=== PATIENT | female | born 1975 | race Caucasian/White ===

== ENCOUNTER → 2017-04-25 09:05 | Outpatient (CLI) | payer BC, SELFPAY ==
[2017-04-25 12:19] LABS: Absolute Lymphocyte Count 1.42 X10^3/ul (0.83-4.51); Absolute Neutrophil Count 5.1 X10^3/uL (2.0-7.7); Basophil# 0.01 X10^3/uL; Basophil% 0.1 % (0-1); Eosinophil# 0.09 X10^3/uL; Eosinophils% 1.2 % (0-5); Hematocrit 41.1 % (37-47); Hemoglobin 13.3 g/dl (12.0-15.0); Lymphocyte # 1.42 X10^3/ul (4.0); Lymphocyte % 19.7 % (19-41); Mean Corp Hgb Conc 32.4 g/gl (32-36); Mean Corpuscular Hgb 28.7 pg (27.0-32.0); Mean Corpuscular Volume 88.6 fL (81-99); Mean Platelet Vol. 11.1 fl (6.2-12.0); Monocyte# 0.59 X10^3/uL; Monocyte% 8.2 % (0-10); Neutrophil # 5.09 X10^3/uL (2.7-7.7); Neutrophil % 70.7 % (47-70); Platelet Count 222 K/mm3 (150-450); RBC Distribution Width CV 13.5 % (11.6-14.6); RBC Distribution Width SD 43.9 fl (35.1-43.9); Red Blood Count 4.64 M/mm3 (4.2-5.4); White Blood Count 7.2 K/mm3 (4.4-11.0)
[2017-04-25 12:22] LABS: POSITIVE COUNT NO; POSITIVE DIFFERENTIAL NO; POSITIVE MORPHOLOGY NO
[2017-04-25 12:40] LABS: Vitamin B12 577 pg/mL (211-911)
[2017-04-25 12:56] LABS: ALB/GLOB Ratio 0.9 RATIO (0.9-2.4); AST(SGOT) 12 U/L (15-37); Alanine Aminotransfer ALT/SGPT 25 U/L (13-56); Albumin, Serum 3.6 g/dL (3.2-5.0); Alkaline Phosphatase 70 U/L (45-117); Anion Gap 9 (5-15); BUN 11 mg/dL (7-18); Calcium,Total 8.5 mg/dL (8.5-10.1); Chloride 107 mmol/L (98-107); Cholesterol 154 mg/dL (200); Creatinine, Serum 0.79 mg/dL (0.55-1.02); EST Glomerular Filtration Rate 86 mL/min (>60); Est Glom Filt Rate - Afr Amer 104 mL/min (>60); Globulin 3.8 g/dL (2.2-4.2); Glucose 88 mg/dL (74-106); High Density Lipoprotein 44 mg/dL; Protein, Total 7.4 g/dL (6.4-8.2); Sodium Level 140 mmol/L (136-145); T4 Total, Thyroxin 8.9 ug/dL (4.8-13.9); Thyroid Stim Hormone (TSH) 4.18 uIU/mL (0.358-3.74); Triglycerides 102 mg/dL; Very Low Density Lipoprotein 20 mg/dL (5-40)
== END ==
PROVIDERS: Family Provider Family Medicine; PCP Family Medicine; Visit Provider Family Medicine
DX: E66.3 Overweight (principal)
CPT/HCPCS: 36415; 80053; 80061; 82607; 84436; 84443; 85025

== ENCOUNTER → 2019-09-07 17:15 | Outpatient (CLI) | payer OTHER, SELFPAY | PROVIDERS: PCP Family Medicine; Referring Provider Family Medicine; Visit Provider Family Medicine | DX: Z20.828 Contact with and (suspected) exposure to other viral communicable diseases (principal) | CPT/HCPCS: 87635; G2023; U0003 ==

== ENCOUNTER → 2022-03-30 | Outpatient (CLI) | payer OTHER, SELFPAY | END | disposition home or self-care (01) | LOC: BFHLAB 13:00 → LABSPEC 13:05 | PROVIDERS: PCP Family Medicine; Visit Provider Family Medicine | DX: Z20.828 Contact with and (suspected) exposure to other viral communicable diseases (principal); B34.9 Viral infection, unspecified | CPT/HCPCS: 87635; U0003; U0005 ==

== ENCOUNTER → 2024-01-12 | Outpatient (CLI) | payer OTHER, SELFPAY ==
--- NOTE | 2024-01-12 12:31 | US_ITS ---
HISTORY: pelvic pain/IUD placement. TECHNIQUE: Transvaginal pelvic ultrasound was performed with shaw scale and color Doppler evaluation. 56 images. COMPARISON: None. FINDINGS: UTERUS: 10.4 x 4.7 x 6.7 cm. Anteverted. 1.9 x 2.1 x 2.2 cm round heterogeneous lesion. ENDOMETRIAL THICKNESS: 4 mm. Intrauterine device in place. RIGHT OVARY: 1.6 x 1.6 x 2.8 cm. No adnexal masses. LEFT OVARY: 1.3 x 1.4 x 2.3 cm. No adnexal masses. FREE FLUID: None. US/Transvaginal Non- IMPRESSION: Small uterine leiomyoma. Intrauterine device in place. Electronically Signed: Savita Law MD at 14:24 EDT ,
--- NOTE | 2024-01-12 13:08 | BI_ITS ---
MAMMOGRAPHY - BILATERAL SCREENING REASON FOR EXAM: Female, 48 years old. Routine annual screening examination. PERTINENT HISTORY: Non-contributory. TECHNIQUE: Digital bilateral breast elver (3D mammographic acquisition) in the CC and MLO projections. 2-D mediolateral oblique (MLO) and craniocaudad (CC) views of both breasts were obtained. CAD: Full Field Digital Mammography with Computer Added Detection was performed. COMPARISON: Comparison is made with prior outside examination of December 02, 2022. FINDINGS: Breast Composition: The breasts are extremely dense, which lowers the sensitivity of mammography. There are no dominant masses or suspicious calcifications. Stable small benign-appearing bilateral axillary lymph nodes. No other significant abnormalities are identified. There has been no significant change since the prior study. BI/SCRN MAMM (CAD)W/ELVER BILAT IMPRESSION: Stable bilateral screening mammogram. Yearly follow-up mammogram recommended. (A) ASSESSMENT CATEGORY: BIRADS Category 2: Benign. A letter regarding these results will be sent to the patient by the facility within 30 days. Approximately 10% of breast cancers are not detected by mammography. A normal mammogram should not delay biopsy of a clinically suspicious abnormality. [id number] Electronically Signed: Patricio Barth MD at 10:28 EST ,
== END | disposition home or self-care (01) ==
PROVIDERS: PCP Nurse Practitioner Family; Referring Provider Advanced Practice Midwife; Visit Provider Advanced Practice Midwife
DX: Z12.31 Encounter for screening mammogram for malignant neoplasm of breast (principal); R10.2 Pelvic and perineal pain; D25.9 Leiomyoma of uterus, unspecified
CPT/HCPCS: 76830; 77063; 77067

== ENCOUNTER 2024-02-27 06:08 | Day surgery (SDC) | payer OTHER, SELFPAY ==
[2024-02-27] VITALS (7 sets, daily range): BP systolic 100–107; BP diastolic 58–72; PULSE 53–72; RESP 14–16; TEMP 36.3–36.6; O2SAT 99–100; BMI 31.1
[2024-02-27 06:32] LABS: Internal QC Validated? YES +Cl - CLEAR BKGD; Pregnancy, Urine Negative Negative
--- NOTE | 2024-02-27 06:51 | PCM.PRE.AN2 ---
ASA Classification* ASA Classification ASA Classification: 2 Assessment & Plan Anesthesia* Anesthesia Assessment Anesthesia Assessment: Discussed sedation and/or anesthesia options, risks, benefits, and alternatives with patient/parents/legal guardian/POA. Questions invited. The patient/parents/legal guardian/POA seems to understand and agrees to proceed with anesthesia plan. Reviewed the physical assessment, medical history, allergy history and patient home medications list prior to surgery/procedure/anesthetic and documented any changes. Performed airway and anesthesia risk assessments. Anesthesia Type Anesthesia Type: MAC History Source History Obtained from:: Patient and Chart Anesthesia Focused Assessment* Temperature: 97.3 F Pulse Rate: 72 Blood Pressure: 107/72 Respiratory Rate: 16 Pulse Ox: 100 Airway Assessment Mouth opens: >3 cm Mallampati Score: II Teeth Condition: Intact Neck Range of motion (ROM): Full ROM Focused Labs Anesthesia Preop lab: CBC WBC 7.2 K/mm3 (4.4-11.0) 04/25/17 09:12 RBC 4.64 M/mm3 (4.2-5.4) 04/25/17 09:12 Hgb 13.3 g/dl (12.0-15.0) 04/25/17 09:12 Hct 41.1 % (37-47) 04/25/17 09:12 Plt Count 222 K/mm3 (150-450) 04/25/17 09:12 CHEMISTRY Potassium 4.0 mmol/L (3.5-5.1) 04/25/17 09:12 Sodium 140 mmol/L (136-145) 04/25/17 09:12 BUN 11 mg/dL (7-18) 04/25/17 09:12 Creatinine 0.79 mg/dL (0.55-1.02) 04/25/17 09:12 Glucose 88 mg/dL (74-106) 04/25/17 09:12 TSH 4.18 uIU/mL (0.358-3.74) H 04/25/17 09:12 COAG Urine Test Negative Negative 02/27/24 06:20 Pre-Assessment Diagnosis/Proposed Procedure Planned Operative Procedure(s): COLONOSCOPY-OA Anesthesia History 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 When Was Last Pacemaker Check QUESTION #4 FULL TEXT: You/Your Family Experience fever (hyperthermia) with Anesthesia Last Oral Intake Last Oral intake: Last Oral Intake NPO since 00:00 02/27/24 06:32 Meds taken in AM with sips of water? 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 Female Yes 02/22/24 15:44 HX of Motion Sickness No 02/22/24 15:44 HX of N/V After Surgery No 02/22/24 15:44 Non-Smoker Yes 02/22/24 15:44 Duration of Surgery greater No 02/22/24 15:44 than 60 minutes Number of Risk Factors 2 02/22/24 15:44 PONV Score Moderate Risk 02/22/24 15:44 Height & Weight Height & Weight: Anesthesia: Height & Weight Height 5 ft 7 in 02/27/24 06:32 Weight: 90.265 kg 02/27/24 06:32 Body Mass Index (BMI) 31.1 02/27/24 06:32 Respiratory Assessment Respiratory Assessment - asphalt plant worker: Respiratory Tract Infection Hx - asphalt plant worker Hx Respiratory Tract Infection No 02/22/24 15:44 STOP Sleep Apnea STOP Sleep Apnea - asphalt plant worker: STOP Sleep Apnea - asphalt plant worker Hx Hypertension No 02/22/24 15:44 Hx Sleep Apnea No 02/22/24 15:44 CPAP BIPAP Do you snore loudly (louder No 02/22/24 15:44 than talking or can be heard Do you often feel tired/ No 02/22/24 15:44 fatigued/ sleepy during daytime? Has anyone observed you stop No 02/22/24 15:44 breathing during sleep? STOP Results Negative 02/22/24 15:44 QUESTION #5 FULL TEXT : Do you snore loudly (louder than talking or can be heard through closed doors)? 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 Specify any problems Hx of Preganancy in last 3 No 02/22/24 15:44 Months Nurse Filling Out Transfusion VCHRISTIN 02/22/24 15:44 & Questions: Date: 02/22/24 02/22/24 15:44 Time: 15:46 02/22/24 15:44 Patient unable to answer at this time (ie. confused, unrespo /Reproduction History /Reproductive History - asphalt plant worker: /Reproductive Hx- asphalt plant worker Hx Now No 02/22/24 15:44 Gestational Age (in weeks): EDC: Hx Hx Para Hx Section SAB No 02/22/24 15:44 PFSH Medical History Alcohol use Non-smoker Abdominal pain Home Medications ?Medication ?Instructions ?Recorded ?Last Taken ?Type ascorbate calcium (vitamin C) 1 tab PO DAILY 01/04/24 Unknown History multivitamin with minerals-folic 1 tab PO DAILY 01/04/24 Unknown History acid 200 mcg chewable tablet vit C 65 mg-D3 3.15 mcg-vit E 3.35 1 tab PO DAILY 01/12/24 Unknown History mg-zinc 1 mg-elderberry chew tablet biotin 10,000 mcg capsule 10,000 mcg PO DAILY 02/22/24 Unknown History ferrous sulfate 325 mg (65 mg 325 mg PO DAILY 02/22/24 Unknown History iron) tablet (Feosol) magnesium 250 mg tablet 250 mg PO DAILY 02/22/24 Unknown History selenium 50 mcg tablet 50 mcg PO DAILY 02/22/24 Unknown History zinc gluconate 50 mg tablet 50 mg PO DAILY 02/22/24 Unknown History Allergy/AdvReac Type Severity Reaction Status Date / Time codeine AdvReac Severe Other Verified 02/27/24 06:31 Family History Father Heart disease Surgical History Hx of tonsillectomy Hx of removal of cyst S/P abdominoplasty S/P Social History adopted: No household members: family housing: house number of children: 3 current occupational status: employed 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 pets and animals: Yes pets and animals: cat(s) and dog(s) sexually active: Yes Smoking Status: Never smoker alcohol intake: current details: social substance use type: does not use diet: ideal protein well-balanced diet: daily or most days caffeine: No eating out: 1-3 times/week during the past year weight has: remained stable what type of physical activity do you participate in: walking frequency: daily duration: 30-45 minutes/day sreekanth/scientology: Alevism seatbelt use: always do you feel safe at home: Yes additional social history: - Jovanny Review of Systems (Anesthesia) ROS Narrative System reviewed and no additional complaints, except as documented.
--- NOTE | 2024-02-27 07:08 | HP.PCM_ITS ---
[facility] - General General Date of Service: 02/27/24 HPI Narrative JUSTIN BLAKELY, is a 48 F who presents for screening colonoscopy. Patient never had previous colonoscopy. She denies any family history of colon cancer. Patient has bowel movements daily denies any blood. Patient denies any chronic abdominal pain/nausea/vomiting/reflux. [facility] Medical History Alcohol use Non-smoker Abdominal pain Home Medications ?Medication ?Instructions ?Recorded ?Last Taken ?Type ascorbate calcium (vitamin C) 1 tab PO DAILY 01/04/24 Unknown History multivitamin with minerals-folic 1 tab PO DAILY 01/04/24 Unknown History acid 200 mcg chewable tablet vit C 65 mg-D3 3.15 mcg-vit E 3.35 1 tab PO DAILY 01/12/24 Unknown History mg-zinc 1 mg-elderberry chew tablet biotin 10,000 mcg capsule 10,000 mcg PO DAILY 02/22/24 Unknown History ferrous sulfate 325 mg (65 mg 325 mg PO DAILY 02/22/24 Unknown History iron) tablet (Feosol) magnesium 250 mg tablet 250 mg PO DAILY 02/22/24 Unknown History selenium 50 mcg tablet 50 mcg PO DAILY 02/22/24 Unknown History zinc gluconate 50 mg tablet 50 mg PO DAILY 02/22/24 Unknown History Allergy/AdvReac Type Severity Reaction Status Date / Time codeine AdvReac Severe Other Verified 02/27/24 06:31 Family History Father Heart disease Surgical History Hx of tonsillectomy Hx of removal of cyst S/P abdominoplasty S/P Social History adopted: No household members: family housing: house number of children: 3 current occupational status: employed 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 pets and animals: Yes pets and animals: cat(s) and dog(s) sexually active: Yes Smoking Status: Never smoker alcohol intake: current details: social substance use type: does not use diet: ideal protein well-balanced diet: daily or most days caffeine: No eating out: 1-3 times/week during the past year weight has: remained stable what type of physical activity do you participate in: walking frequency: daily duration: 30-45 minutes/day sreekanth/episcopalian: Episcopalian seatbelt use: always do you feel safe at home: Yes additional social history: - Jovanny Past Medical/Surgical History Planned Operation Planned Operative Procedure(s): COLONOSCOPY-OA Previous Hospitalizations/Surgeries HX Hospitalizations: No Any Problems With Anesthesia: No You/Your Family Experience Fever (Hyperthermia) With Anes: No Cholinesterase deficiency: No Cardiovascular Hx Hypertension: No Respiratory Hx Sleep Apnea: No Hx Respiratory Tract Infection/Cold (presently): No Do You Snore Loudly (louder than talking or can be heard): No Do You Often Feel Tired/ Fatigued/ Sleepy Dring Daytime?: No Has Anyone Observed You Stop Breathing During Sleep?: No Result (for STOP score): Negative Smoking Status: Never smoker Neurological Does patient have nerve stimulator: No Reproduction : No Miscellaneous Recent Exposure to Contagious Disease: No Allergies codeine Adverse Reaction (Severe, Verified 02/27/24 06:31) Other TAKES SEVERAL DAYS FOR IT TO WEAR OFF Discharge Is Pt Admitted From a Residential, or a Correction: No After D/C, Where Do you Plan to Go: Return Home Vital Signs Vital Signs Vital Signs: 02/27/24 06:32 02/27/24 06:32 02/27/24 06:51 Temperature 97.3 F L 97.3 F L Temperature Source Temporal Pulse Rate 72 72 Respiratory Rate 16 16 Respiratory Pattern Normal Blood Pressure 107/72 107/72 Blood Pressure Mean 83 Blood Pressure Source Monitor Blood Pressure Position Semi-Fowlers Blood Pressure Location Left Arm Pulse Ox 100 100 Oxygen Delivery Method Room Air Weight Weight: 199 lb Body Mass Index (BMI) 31.1 Physical Exam Const alert, oriented x3 and no apparent distress HEENT normocephalic and head/scalp atraumatic Resp normal respiratory effort Cardio regular rate GI soft to palpation and non-tender; Negative for non-distended Palpation: Negative for guarding Extremity no clubbing, cyanosis or edema Skin no rashes or lesions noted Neuro CN's II-XII intact bilaterally Psych mental status grossly normal Assessment & Plan Assessment/Plan (1) Encounter for screening for malignant neoplasm of colon: Surgery Risks - Colonoscopy I discussed with the patient the risks of the procedure: Yes Risks Include but are not Limited To: Risks include but are not limited to: Bleeding, perforation requiring further surgery, inability to complete colonoscopy requiring barium enema.
--- NOTE | 2024-02-27 07:30 | COLBX_PTH ---
PATIENT: JUSTIN BLAKELY LOC: EN U#:[id number] AGE/SX: 48/F ROOM: RE02/27/[address]: Dr. Sarah Driscoll MD : 1975 BED: DIS: 02/27/2024 SPEC #: [id number] RECD: 02/27/24 12:45 STATUS: ADRIÁN REWindy #: [id number] WILLIAM: 02/27/24 07:[address]: Sarah Driscoll DEPT: SURGICAL PATHOLOGY RECD BY: Mildred Zacarias ENTERED: 02/27/24 13:47 SP TYPE: COLON BX OTHR DR: Dory Roberts, CRYSTAL SYRUP MAKER-C Tissues: COLON BIOPSY Procedures: Surgery Specimen Level IV HEADER OPERATION: Colonoscopy with biopsy PRE-OP DIAGNOSIS: Encounter for screening for malignant neoplasm of colon TISSUE SUBMITTED: Hepatic flexure polyp x2 biopsy MICROSCOPIC DIAGNOSIS Hepatic flexure polyp x2, biopsy: Fragments of hyperplastic polyp. SJ.mr 02/28/2024 MICROSCOPIC DESCRIPTION Slides are reviewed. GROSS DESCRIPTION Received in fixative is one container labeled with the patient's name and designated Hepatic flexure polyp x2. The specimen consists of multiple irregular fragments of light camarena soft tissue that in aggregate measure 1.5 x 0.5 x 0.1 cm. The specimen is totally submitted in one cassette. LUCY. 02/27/2024 TC:1 CPT:36646
--- NOTE | 2024-02-27 07:59 | OP.CCLET_ITS ---
02/27/2024 Fartun Rosario Re : Colonoscopy procedure for Kristin Walton Dear Armando This procedure was performed on Tuesday, February 27, 2024. My impressions and recommendations are as follows: Impressions : - Hemorrhoids found on perianal exam. - Non-bleeding internal hemorrhoids. - Two less than 5 mm polyps at the hepatic flexure, removed with a cold biopsy forceps. Resected and retrieved. - The examination was otherwise normal. Recommendations : - Discharge patient to home. - Resume previous diet. - Continue present medications. - Await pathology results. - Repeat colonoscopy in 5 years for surveillance based on pathology results. My findings are described in the full procedure note, which is enclosed. If I can be of further assistance, please feel free to contact me at Doctor phone number(s): , Work: . Sincerely, MD Sarah Rodriguez MD 02/27/2024 7:58:18 AM This report has been signed electronically.
--- NOTE | 2024-02-27 07:59 | OP.COLON_ITS ---
Patient Name: Kristin Walton Procedure Date: 02/27/2024 7:10 AM Date of : 1975 Age: 48 Procedure: Colonoscopy Indications: Screening for colorectal malignant neoplasm Providers: Sarah Driscoll MD Referring MD: Ruben Ordonez MD Medicines: Monitored Anesthesia Care Patient Profile: This is a 48 year old female. Last Colonoscopy: none. The patient's first colonoscopy is today. Complications: No immediate complications. Procedure: Pre-Anesthesia Assessment: - Prior to the procedure, a History and Physical was performed, and patient medications and allergies were reviewed. The patient's tolerance of previous anesthesia was also reviewed. The risks and benefits of the procedure and the sedation options and risks were discussed with the patient. All questions were answered, and informed consent was obtained. Prior Anticoagulants: The patient has taken no anticoagulant or antiplatelet agents. ASA Grade Assessment: Per anesthesia. After reviewing the risks and benefits, the patient was deemed in satisfactory condition to undergo the procedure. After I obtained informed consent, the scope was passed under direct vision. Throughout the procedure, the patient's blood pressure, pulse, and oxygen saturations were monitored continuously. The Colonoscope was introduced through the anus and advanced to the cecum, identified by appendiceal orifice and ileocecal valve. The colonoscopy was performed without difficulty. The patient tolerated the procedure well. The quality of the bowel preparation was good. Scope In: 7:34:03 AM Scope Withdrawal Time 0 hours 13 minutes 47 seconds Scope Out: 7:54:08 AM Total Procedure Duration Time 0 hours 20 minutes 5 seconds Findings: Hemorrhoids were found on perianal exam. Non-bleeding internal hemorrhoids were found. The hemorrhoids were Grade I (internal hemorrhoids that do not prolapse). Two sessile polyps were found in the hepatic flexure. The polyps were less than 5 mm in size. These polyps were removed with a cold biopsy forceps. Resection and retrieval were complete. The exam was otherwise without abnormality. Impression: - Hemorrhoids found on perianal exam. - Non-bleeding internal hemorrhoids. - Two less than 5 mm polyps at the hepatic flexure, removed with a cold biopsy forceps. Resected and retrieved. - The examination was otherwise normal. Recommendation: - Discharge patient to home. - Resume previous diet. - Continue present medications. - Await pathology results. - Repeat colonoscopy in 5 years for surveillance based on pathology results. Procedure Code(s): --- Professional --- 55570, PT, Colonoscopy, flexible; with biopsy, single or multiple Diagnosis Code(s): --- Professional --- Z12.11, Encounter for screening for malignant neoplasm of colon K64.0, First degree hemorrhoids D12.3, Benign neoplasm of transverse colon (hepatic flexure or splenic flexure) CPT copyright 2021 [employer]. All rights reserved. The codes documented in this report are preliminary and upon technician inventory specialist review may be revised to meet current compliance requirements. MD Sarah Rodriguez MD 02/27/2024 7:58:18 AM This report has been signed electronically. Number of Addenda: 0 Note Initiated On: 02/27/2024 7:10 AM
--- NOTE | 2024-02-27 08:04 | PCM.POST.ANE ---
Anesthesia: Postop Eval I Current Vital Signs Temperature: 97.6 F Pulse Rate: 67 Blood Pressure: 101/58 Respiratory Rate: 14 Pulse Ox: 100 Oxygen Delivery Method: Room Air Assessment Airway patent: Yes Spontaneous unlabored respirations: Yes Mental status: Asleep nausea: No Vomiting: No Anesthesia Complication: No Fluid Hydration Crystalloid volume administer (ml): 60 Total IV fluid infused: 60 Progress Note Anesthesia document: Postop Eval 1 completed: Yes
--- NOTE | 2024-02-27 10:02 | PCM.POSTANE2 ---
Anesthesia Postop Eval I Sum Postop Eval Completion status Anesthesia document: Postop Eval 1 completed: Yes Anesthesia Postop Eval I Summary Anesthesia Postop Eval I Summary: Anesthesia Postop Eval I: Assessment Summary Airway patent Yes 02/27/24 08:05 [email or web address] Spontaneous unlabored Yes 02/27/24 08:05 [email or web address] respirations Mental status Asleep 02/27/24 08:05 [email or web address] nausea No 02/27/24 08:05 [email or web address] Vomiting No 02/27/24 08:05 [email or web address] Anesthesia Postop Eval I: Fluid Summary Crystalloid volume administer 60 02/27/24 08:05 [email or web address] (ml) Colloids volume administered ( ml) Blood Product volume administered (ml) Total IV fluid infused 60 02/27/24 08:05 [email or web address] Anesthesia Postop Eval I: Summary Notes Anesthesia Complication No 02/27/24 08:05 [email or web address] Anesthesia Complication Comment: Post-operative progress note Anesthesia: Postop Eval II Evaluation Mental status: Awake Pain Level: 0 nausea: No Vomiting: No
== END 2024-02-27 08:47 | disposition home or self-care (01) ==
LOC: EN 06:09 → AC 06:11
PROVIDERS: Anesthesiology; PCP Nurse Practitioner Family; Referring Provider Nurse Practitioner Family; Visit Provider Surgery
PROC: 0DJD8ZZ Inspection of Lower Intestinal Tract, Via Natural or Artificial Opening Endoscopic (ICD-10-PCS; CPT 45378; principal; 2024-02-27 07:25)
DX: Z12.11 Encounter for screening for malignant neoplasm of colon (principal); K64.0 First degree hemorrhoids; K64.4 Residual hemorrhoidal skin tags; K63.5 Polyp of colon
CPT/HCPCS: 45380; 81025; 88305; A4216; J2405

== ENCOUNTER → 2025-01-29 | Outpatient (CLI) | payer OTHER, SELFPAY ==
--- NOTE | 2025-01-29 11:00 | BI_ITS ---
EXAM: SCRN MAMM (CAD)W/ELVER BILAT DATE: 01/29/2025 CLINICAL HISTORY: F, Age 49 y/o , SCREEN FOR BREAST CANCER No family history. TECHNIQUE: Procedure Code: [id number] Modality: MG Procedure: SCRN MAMM (CAD)W/ELVER BILAT COMPARISON: Prior exam(s) dated January 24, 2024.. FINDINGS: TISSUE DENSITY: The breasts are extremely dense, which lowers the sensitivity of mammography. Bilateral Breast Mammographic Findings: No significant masses, calcifications or other abnormalities are identified. Stable small benign-appearing bilateral axillary lymph nodes. No suspicious masses, areas of developing architectural distortion, or suspicious calcifications. There has been no significant interval change. BI/SCRN MAMM (CAD)W/ELVER BILAT IMPRESSION: Stable bilateral screening mammogram. OVERALL FINAL ASSESSMENT BI-RADS 2: BENIGN RECOMMENDATION: Routine annual follow-up in 1 Year Additional Recommendation none A letter with findings and recommendations will be mailed to the patient. Reading Location: [facility]
== END | disposition home or self-care (01) ==
PROVIDERS: PCP Nurse Practitioner Family; Referring Provider Advanced Practice Midwife; Visit Provider Advanced Practice Midwife
DX: Z12.31 Encounter for screening mammogram for malignant neoplasm of breast (principal)
CPT/HCPCS: 77063; 77067

== ENCOUNTER → 2025-01-29 | Outpatient (CLI) | payer OTHER, SELFPAY ==
[2025-01-30 21:07] LABS: HPV APTIMA, High Risk Negative (Negative)
== END | disposition home or self-care (01) ==
LOC: LABSPEC 10:42
PROVIDERS: PCP Nurse Practitioner Family; Visit Provider Advanced Practice Midwife
DX: Z12.4 Encounter for screening for malignant neoplasm of cervix (principal)
CPT/HCPCS: 87624; 88175; G0145